=== PATIENT | female | born 1995 | race Caucasian/White ===

== ENCOUNTER → 2019-09-19 | Outpatient (CLI) | payer BC ==
[2019-09-19 10:47] LABS: BASO # 0.1 10^3/uL (0.0-0.2); BASO % 1.3 % (0.0-1.0); EOS # 0.3 10^3/uL (0.0-0.5); EOS % 3.2 % (0.0-3.0); HEMATOCRIT 45.7 % (36.0-47.0); HEMOGLOBIN 14.9 g/dl (12.0-15.5); LYMPH # 2.1 10^3/uL (1.5-5.0); LYMPH % 26.1 % (24.0-44.0); MEAN CORPUSCULAR HEMOGLOBIN 28.4 pg (27.0-33.0); MEAN CORPUSCULAR HGB CONC 32.6 g/dl (32.0-36.5); MEAN CORPUSCULAR VOLUME 87.2 fl (80.0-96.0); MONO # 0.5 10^3/uL (0.0-0.8); MONO % 6.9 % (0.0-5.0); NEUTROPHILS # 4.8 10^3/uL (1.5-8.5); NEUTROPHILS % 61.1 % (36.0-66.0); PLATELET COUNT, AUTOMATED 381 10^3/uL (150-450); RED BLOOD COUNT 5.24 10^6/uL (4.00-5.40); WHITE BLOOD COUNT 7.9 10^3/uL (4.0-10.0)
[2019-09-19 11:05] LABS: ERYTHROCYTE SEDIMENTATION RATE 5 mm/hr (0-20)
[2019-09-19 11:21] LABS: MONO SCRN NEGATIVE (NEGATIVE)
[2019-09-19 11:26] LABS: ALBUMIN 3.8 GM/DL (3.2-5.2); ALT/SGPT 32 U/L (12-78); BLOOD UREA NITROGEN 10 MG/DL (7-18); C REACTIVE PROTEIN QUANTITATIV 1.04 MG/DL (0.00-0.30); CALCIUM LEVEL 9.1 MG/DL (8.5-10.1); CARBON DIOXIDE LEVEL 26 MEQ/L (21-32); CHLORIDE LEVEL 106 MEQ/L (98-107); CHOLESTEROL LEVEL 121 MG/DL (<200); CHOLESTEROL RISK RATIO 2.016 (<5); CREATININE FOR GFR 0.71 MG/DL (0.55-1.30); FREE T3 3.5 PG/ML (2.2-4.0); FREE T4 1.32 NG/DL (0.76-1.46); GLOMERULAR FILTRATION RATE > 60.0 (>60); GLUCOSE, FASTING 80 MG/DL (70-100); HDL CHOLESTEROL 60 MG/DL (>40); LDL CHOLESTEROL 47 MG/DL (<100); NON-HDL-C 61 MG/DL; POTASSIUM SERUM 4.4 MEQ/L (3.5-5.1); RHEUMATOID FACTOR QUANT < 10.0 IU/ML (<15.0); SODIUM LEVEL 140 MEQ/L (136-145); THYROID STIMULATING HORMONE 0.943 uIU/ML (0.358-3.740); TRIGLYCERIDES LEVEL 70 MG/DL (<150); URIC ACID 3.2 MG/DL (2.6-6.0)
[2019-09-19 11:35] LABS: TOTAL 25(OH) VITAMIN D 19.7 NG/ML (30.0-100.0)
[2019-09-19 11:36] LABS: FOLATE 13.1 NG/ML (>5.4); TOTAL T3 124.8 NG/DL (60.0-181.0); VITAMIN B12 LEVEL 1809 PG/ML (247-911)
[2019-09-21 14:03] LABS: ANTINUCLEAR ANTIBODIES DIRECT Negative (Negative); CYCLIC CITRULLINATED PEPTIDE 7 units (0-19); EBV VIRAL CAPSID AG IgG 72.3 U/mL (0.0-17.9); EBV VIRAL CAPSID AG IgM <36.0 U/mL (0.0-35.9); Lyme Disease IgG/IgM Antibodie <0.91 ISR (0.00-0.90); Lyme Disease IgM Ab Quantitati <0.80 index (0.00-0.79); MYCOPLASMA PNEUMONIAE IgG 157 U/mL (0-99); MYCOPLASMA PNEUMONIAE IgM <770 U/mL (0-769)
== END ==
LOC: M LAB 09:27
PROVIDERS: ATTEND Physician Assistant Medical
DX: R53.83 Other fatigue (principal)

== ENCOUNTER 2021-01-21 18:20 | Emergency (ER) | payer OTHER, BC ==
[~2021-01-21] VITALS: Ht 157.5 cm; Wt 50.1 kg
[2021-01-21] MEDS ORDERED: CETI-24 (18:26)
[2021-01-21] MEDS ORDERED: ALBU8.5H (18:26)
[2021-01-21] MEDS ORDERED: BUDE10.2 (18:26)
[2021-01-21] MEDS ORDERED: HYDR-3363 (18:26)
[2021-01-21] MEDS ORDERED: NEXP1IMP SC (18:26)
[2021-01-21] MEDS ORDERED: FLUORESCEIN OPHTH 1 MG STRIP OU ONE (19:25)
[2021-01-21] MEDS ORDERED: TETRACAINE 0.5% OPHTH SOLN 4ML OU ONE (19:25)
[2021-01-21] MEDS ORDERED: CIPROFLOXACIN 0.3% OPHTH SOLN 2.5ML OS ONE (19:50)
[2021-01-21] MEDS ORDERED: CIPR0.3S6 OD (19:52)
[2021-01-21 20:11] VITALS: BP 118/72
== END 2021-01-21 20:13 | disposition home or self-care (01) ==
LOC: M ED 18:20
DX: S05.8X2A Other injuries of left eye and orbit, initial encounter (principal); T15.12XA Foreign body in conjunctival sac, left eye, initial encounter; X58.XXXA Exposure to other specified factors, initial encounter; Y92.89 Other specified places as the place of occurrence of the external cause; J45.909 Unspecified asthma, uncomplicated; Z79.899 Other long term (current) drug therapy; Z79.3 Long term (current) use of hormonal contraceptives; Z88.1 Allergy status to other antibiotic agents; Z88.2 Allergy status to sulfonamides